=== PATIENT | female | born 1970 | race Caucasian/White ===

== ENCOUNTER 2024-07-14 11:51 | Inpatient (IN) | payer MEDICARE, OTHER ==
[~2024-07-14] VITALS: Ht 162.6 cm; Wt 59.0 kg
[2024-07-14 12:56] LABS: BASOPHILS # (AUTO) 0.1 K/uL (0.0-0.2); BASOPHILS % (AUTO) 1.1 % (0.0-2.0); EOSINOPHILS # (AUTO) 0.1 K/uL (0.0-0.7); EOSINOPHILS % (AUTO) 1.3 % (0.0-6.0); HEMATOCRIT 40 % (33-45); HEMOGLOBIN 13.2 g/dL (11.5-14.8); LYMPHOCYTES # (AUTO) 1.5 K/uL (0.8-4.8); LYMPHOCYTES % (AUTO) 20.9 % (20.0-44.0); MEAN CORPUSCULAR HEMOGLOBIN 26 PG (26.0-33.0); MEAN CORPUSCULAR HGB CONC 33 g/dl (31.0-36.0); MEAN CORPUSCULAR VOLUME 80 fL (82-100); MONOCYTES # (AUTO) 0.5 K/uL (0.1-1.30); MONOCYTES % (AUTO) 6.7 % (2.0-12.0); NEUTROPHILS # (AUTO) 5.1 K/uL (1.8-8.9); PLATELET COUNT (AUTO) 304 K/uL (150-450); RED BLOOD CELL COUNT(AUTO) 5.07 MIL/uL (4.0-5.2); RED CELL DISTRIBUTION WIDTH 14.3 % (11.5-15.0); WHITE BLOOD COUNT (AUTO) 7.3 K/uL (4.3-11.0)
[2024-07-14 13:51] LABS: ALANINE AMINOTRANSFERASE 25 U/L (12-78); ALBUMIN 3.6 g/dL (3.4-5.0); ALCOHOL, BLOOD < 3 mg/dL (0-10); ALKALINE PHOSPHATASE 76 U/L (46-116); ASPARTATE AMINOTRANSFERASE 18 U/L (15-37); BILIRUBIN,DIRECT 0.1 mg/dL (0.0-0.2); BILIRUBIN,TOTAL 0.3 mg/dL (0.2-1.0); CALCIUM, SERUM 9.3 mg/dL (8.5-10.1); CARBON DIOXIDE 29 mmol/L (21-32); CHLORIDE 100 mmol/L (98-107); CREATININE 0.8 mg/dL (0.6-1.3); GLUCOSE 115 mg/dL (74-106); SODIUM SERUM 137 mmol/L (136-145); TOTAL PROTEIN, SERUM 7.5 g/dL (6.4-8.2); UREA NITROGEN, BLOOD 17 mg/dL (7-18)
[2024-07-14] MEDS ORDERED: DIVALPROEX SODIUM 500 MG TABLET.DR PO ONE (13:56)
[2024-07-14] MEDS: DIVALPROEX SODIUM 500 MG TABLET.DR PO ONE (13:57)
[2024-07-14 14:08] LABS: APPEARANCE,URINE CLEAR (CLEAR); BILIRUBIN,URINE NEGATIVE (NEGATIVE); BLOOD, URINE NEGATIVE Ery/uL (NEGATIVE); COLOR,URINE YELLOW (YELLOW); KETONES,URINE TRACE mg/dL (NEGATIVE); LEUKOCYTE ESTERASE ,URINE NEGATIVE (NEGATIVE); NITRITE, URINE NEGATIVE (NEGATIVE); PROTEIN,URINE NEGATIVE (NEGATIVE); UGLUCOSE NEGATIVE (NEGATIVE); UROBILINOGEN,URINE 0.2 EU/dL (0.2)
[2024-07-14 14:08] LABS: ACETAMINOPHEN <10 ug/ml (10-30); SALICYLATE 0.8 mg/dL (2.8-20.0)
[2024-07-14 14:29] LABS: ADD URINE CULTURE NO; BACTERIA,URINE Few /HPF (None Seen); RBC,URINE 0-2 /HPF (0-2)
[2024-07-14 14:30] LABS: SQUAMOUS EPITHELIAL CELL,UR 0-2 /HPF (None Seen)
[2024-07-14 15:08] LABS: AMPHETAMINE, URINE NEGATIVE (NEGATIVE); BARBITURATE, URINE NEGATIVE (NEGATIVE); BENZODIAZEPINE, URINE NEGATIVE (NEGATIVE); CANNABINOID, URINE NEGATIVE (NEGATIVE); COCCAINE, URINE NEGATIVE (NEGATIVE); OPIATE, URINE NEGATIVE (NEGATIVE); PHENCYCLIDINE SCREEN,URINE NEGATIVE (NEGATIVE)
[2024-07-14] MEDS: ONDANSETRON 4 MG TAB.RAPDIS SL ONE (20:25)
[2024-07-14] MEDS ORDERED: LIDOCAINE VISCOUS 2% UD 15 ML UDC ONE (20:31)
[2024-07-14] MEDS ORDERED: MAG HYDROX/AL HYDROX/SIMETH 30 ML UDC ONE (20:31)
[2024-07-14] MEDS ORDERED: ONDANSETRON 4 MG TAB.RAPDIS ONE (20:31)
[2024-07-14] MEDS: LIDOCAINE VISCOUS 2% UD 15 ML UDC MM ONE (20:36)
[2024-07-14] MEDS: MAG HYDROX/AL HYDROX/SIMETH 30 ML UDC PO ONE (20:37)
[2024-07-15] MEDS ORDERED: LIDOCAINE 5% (PATCH) 1 EA PATCH TP ONE (05:27)
[2024-07-15] MEDS ORDERED: KETOROLAC TROMETHAMINE 15 MG/ML VIAL ONE (05:27)
[2024-07-15] MEDS ORDERED: ACETAMINOPHEN ES 500 MG TABLET ONE (05:27)
[2024-07-15 06:00] VITALS: TEMP 98.4
[2024-07-15] MEDS ORDERED: AMLO-212 PO (07:55)
[2024-07-15] MEDS ORDERED: DIVA-76 PO (07:55)
[2024-07-15] MEDS ORDERED: DOCU250C14 PO (07:55)
[2024-07-15] MEDS ORDERED: METF-440 PO (07:55)
[2024-07-15] MEDS ORDERED: RISP3TAB61 PO (07:55)
[2024-07-15] MEDS ORDERED: MAGNESIUM HYDROXIDE 30 ML UDC PO PRN (08:30)
[2024-07-15] MEDS ORDERED: ACETAMINOPHEN 325 MG TABLET PO PRN (08:30)
[2024-07-15] MEDS ORDERED: MAG HYDROX/AL HYDROX/SIMETH 30 ML UDC PO PRN (08:30)
[2024-07-15] MEDS: ALBUTEROL FS 2.5 MG/3 ML VIAL.NEB NEB SCH (08:48)
[2024-07-15] MEDS: IPRATROPIUM NEB FS 0.5 MG/2.5 ML AMPUL.NEB NEB ONE (08:48)
[2024-07-15 08:50] VITALS: O2SAT 98
[2024-07-15 09:00] VITALS: O2SAT 99
[2024-07-15] MEDS: DOCUSATE SODIUM 250 MG CAPSULE PO SCH (09:00)
[2024-07-15] MEDS: BLOOD SUGAR DIAGNOSTIC 1 EACH STRIP IN ONE (09:29)
[2024-07-15] MEDS: METFORMIN 500 MG TABLET PO SCH (11:00)
[2024-07-15] MEDS: DIVALPROEX SODIUM 250 MG TABLET.DR PO SCH ×2 (11:00→13:00)
[2024-07-15 11:19] VITALS: BP 150/110
[2024-07-15] MEDS: AMLODIPINE BESYLATE 5 MG TABLET PO SCH (11:19)
[2024-07-15 11:20] VITALS: O2SAT 97
[2024-07-15 11:30] VITALS: O2SAT 98; O2SAT 99
[2024-07-15] MEDS: BENZTROPINE MESYLATE (1 MG) 1 MG TABLET PO SCH (13:00)
[2024-07-15] MEDS ORDERED: risperiDONE 1 MG TABLET PO SCH (13:00)
[2024-07-16] MEDS ORDERED: CLOZ100T32 PO (07:47)
[2024-07-16] MEDS ORDERED: TRAZ-257 PO (07:47)
== END 2024-07-15 14:50 | disposition short-term general hospital (02) | DRG 885 ==
LOC: ER 11:55 → GPS 07-15 05:34
PROVIDERS: ADMIT Psychiatry & Neurology Psychosomatic Medicine; ATTEND Nurse Practitioner Family
DX: F20.9 Schizophrenia, unspecified (principal); E11.9 Type 2 diabetes mellitus without complications; I10 Essential (primary) hypertension; R56.9 Unspecified convulsions; Z20.822 Contact with and (suspected) exposure to COVID-19; F39 Unspecified mood [affective] disorder; R62.7 Adult failure to thrive; Z73.6 Limitation of activities due to disability; Z68.22 Body mass index [BMI] 22.0-22.9, adult; J45.909 Unspecified asthma, uncomplicated; F25.0 Schizoaffective disorder, bipolar type; Z79.84 Long term (current) use of oral hypoglycemic drugs
CPT/HCPCS: 36415; 70450-TC; 71045-TC; 80048-TC; 80076-TC; 80164-TC; 81001; 82962-TC; 85025-TC; 87081-TC; 92526; 92611-TC; G0480; J1885; Q0162

== ENCOUNTER 2024-07-15 14:00 | Inpatient (IN) | payer MEDICARE, OTHER ==
[~2024-07-15] VITALS: Ht 162.6 cm; Wt 67.6 kg
[~2024-07-15 14:00] MED LIST: AMLO-212 PO; DIVA-76 PO; DOCU250C14 PO; METF-440 PO; RISP3TAB61 PO
[2024-07-15] MEDS ORDERED: Z GUARD REMEDY 4 OZ OINT TP PRN (14:30)
[2024-07-15] MEDS ORDERED: ONDANSETRON HCL/PF 4 MG/2 ML VIAL IVP PRN (14:30)
[2024-07-15] MEDS ORDERED: ALBUTEROL FS 2.5 MG/3 ML VIAL.NEB NEB PRN (14:30)
[2024-07-15 15:58] VITALS: BP 120/100; TEMP 98.4; O2SAT 99
[2024-07-15 16:07] LABS: BASOPHILS # (AUTO) 0.1 K/uL (0.0-0.2); BASOPHILS % (AUTO) 0.8 % (0.0-2.0); EOSINOPHILS % (AUTO) 0.1 % (0.0-6.0); HEMATOCRIT 39 % (33-45); HEMOGLOBIN 12.7 g/dL (11.5-14.8); LYMPHOCYTES % (AUTO) 11.3 % (20.0-44.0); MEAN CORPUSCULAR HEMOGLOBIN 26 PG (26.0-33.0); MEAN CORPUSCULAR HGB CONC 33 g/dl (31.0-36.0); MEAN CORPUSCULAR VOLUME 80 fL (82-100); MONOCYTES # (AUTO) 0.6 K/uL (0.1-1.30); MONOCYTES % (AUTO) 6.3 % (2.0-12.0); NEUTROPHILS # (AUTO) 7.5 K/uL (1.8-8.9); NEUTROPHILS % (AUTO) 81.5 % (43.0-81.0); PLATELET COUNT (AUTO) 322 K/uL (150-450); RED BLOOD CELL COUNT(AUTO) 4.87 MIL/uL (4.0-5.2); RED CELL DISTRIBUTION WIDTH 14.5 % (11.5-15.0); WHITE BLOOD COUNT (AUTO) 9.2 K/uL (4.3-11.0)
[2024-07-15] MEDS: IV NS 0.9% 1,000 ML IV PRN (16:11)
[2024-07-15 16:22] LABS: CALCIUM, SERUM 9.1 mg/dL (8.5-10.1); CREATININE 0.8 mg/dL (0.6-1.3); MAGNESIUM 2.3 mg/dL (1.8-2.4); PHOSPHORUS 4.2 mg/dL (2.5-4.9); POTASSIUM 3.8 mmol/L (3.5-5.1)
[2024-07-15] MEDS: ENOXAPARIN SODIUM 40 MG/0.4 ML DISP.SYRIN SQ SCH (17:43)
[2024-07-15 20:30] VITALS: BP 125/94; TEMP 98.1; O2SAT 96
[2024-07-15] MEDS ORDERED: DEXTROSE 50%-WATER 50 ML DISP.SYRIN IV PRN (22:00)
[2024-07-15] MEDS: IV D5/ 0.9% NACL 1,000 ML IV PRN (22:07)
[2024-07-15] MEDS: BLOOD SUGAR DIAGNOSTIC 1 EACH STRIP IN SCH (22:39)
[2024-07-15] MEDS: INSULIN REGULAR, HUMAN 100 UNIT/ML 3 ML VIAL SQ PRN (22:39)
[2024-07-15 22:50] VITALS: BP 125/94; TEMP 98.1
[2024-07-16 06:45] LABS: BASOPHILS # (AUTO) 0.1 K/uL (0.0-0.2); BASOPHILS % (AUTO) 1.3 % (0.0-2.0); EOSINOPHILS % (AUTO) 0.3 % (0.0-6.0); HEMATOCRIT 39 % (33-45); HEMOGLOBIN 12.5 g/dL (11.5-14.8); LYMPHOCYTES % (AUTO) 11.6 % (20.0-44.0); MEAN CORPUSCULAR HEMOGLOBIN 26 PG (26.0-33.0); MEAN CORPUSCULAR HGB CONC 32 g/dl (31.0-36.0); MEAN CORPUSCULAR VOLUME 81 fL (82-100); MONOCYTES # (AUTO) 0.8 K/uL (0.1-1.30); MONOCYTES % (AUTO) 8.6 % (2.0-12.0); NEUTROPHILS % (AUTO) 78.2 % (43.0-81.0); PLATELET COUNT (AUTO) 299 K/uL (150-450); RED BLOOD CELL COUNT(AUTO) 4.81 MIL/uL (4.0-5.2); RED CELL DISTRIBUTION WIDTH 14.3 % (11.5-15.0); WHITE BLOOD COUNT (AUTO) 8.9 K/uL (4.3-11.0)
[2024-07-16 07:09] LABS: CREATININE 0.7 mg/dL (0.6-1.3); MAGNESIUM 2.3 mg/dL (1.8-2.4); PHOSPHORUS 3.8 mg/dL (2.5-4.9); POTASSIUM 3.9 mmol/L (3.5-5.1)
[2024-07-16] MEDS ORDERED: TRAZ-257 PO (07:47)
[2024-07-16] MEDS ORDERED: CLOZ100T32 PO (07:47)
[2024-07-16 08:00] VITALS: BP 138/63; TEMP 98.1; O2SAT 94
[2024-07-16] MEDS: GUAIFENESIN LA 600 MG TABLET.SA PO SCH (10:30)
[2024-07-16] MEDS: PANTOPRAZOLE 40 MG VIAL IV SCH (11:26)
[2024-07-16] MEDS: IV D5W 1,000 ML IV PRN (14:32)
[2024-07-16 16:00] VITALS: BP 128/67; TEMP 97.5; O2SAT 96
[2024-07-16] MEDS: DIVALPROEX SODIUM 250 MG TABLET.DR PO SCH (17:00)
[2024-07-16] MEDS ORDERED: TRAZODONE 50 MG TABLET PO PRN (17:00)
[2024-07-16 18:31] LABS: APPEARANCE,URINE CLEAR (CLEAR); BILIRUBIN,URINE NEGATIVE (NEGATIVE); BLOOD, URINE NEGATIVE Ery/uL (NEGATIVE); COLOR,URINE YELLOW (YELLOW); KETONES,URINE 1+ mg/dL (NEGATIVE); LEUKOCYTE ESTERASE ,URINE NEGATIVE (NEGATIVE); NITRITE, URINE NEGATIVE (NEGATIVE); PH,URINE 6.5 (5.0-8.0); PROTEIN,URINE 1+ mg/dl (NEGATIVE); UGLUCOSE NEGATIVE (NEGATIVE)
[2024-07-16] MEDS ORDERED: LORAZEPAM INJ 2 MG/ML VIAL IM PRN (19:30)
[2024-07-16 20:00] VITALS: BP 147/89; TEMP 98.2; O2SAT 97
[2024-07-16] MEDS: LORAZEPAM INJ 2 MG/ML VIAL IM PRN (20:59)
[2024-07-16 21:00] LABS: ADD URINE CULTURE NO; BACTERIA,URINE Few /HPF (None Seen); RBC,URINE 0-2 /HPF (0-2); SQUAMOUS EPITHELIAL CELL,UR Few /HPF (None Seen); WBC,URINE 0-2 /HPF (0-3)
[2024-07-16] MEDS ORDERED: CLOZAPINE 100 MG TABLET PO SCH (22:00)
[2024-07-17 08:00] VITALS: BP_SYST 125; BP_SYST 135; BP_DIAS 70; TEMP 98.8; O2SAT 98
[2024-07-17] MEDS: DOCUSATE SODIUM 250 MG CAPSULE PO SCH (08:50)
[2024-07-17 10:02] LABS: CALCIUM, SERUM 9.1 mg/dL (8.5-10.1); CREATININE 0.7 mg/dL (0.6-1.3); MAGNESIUM 2.2 mg/dL (1.8-2.4); PHOSPHORUS 3.4 mg/dL (2.5-4.9); POTASSIUM 3.7 mmol/L (3.5-5.1)
[2024-07-17 10:08] LABS: BASOPHILS # (AUTO) 0.1 K/uL (0.0-0.2); BASOPHILS % (AUTO) 1.2 % (0.0-2.0); EOSINOPHILS # (AUTO) 0.1 K/uL (0.0-0.7); EOSINOPHILS % (AUTO) 1.1 % (0.0-6.0); HEMATOCRIT 42 % (33-45); HEMOGLOBIN 13.2 g/dL (11.5-14.8); LYMPHOCYTES # (AUTO) 0.8 K/uL (0.8-4.8); LYMPHOCYTES % (AUTO) 12.6 % (20.0-44.0); MEAN CORPUSCULAR HEMOGLOBIN 26 PG (26.0-33.0); MEAN CORPUSCULAR HGB CONC 32 g/dl (31.0-36.0); MEAN CORPUSCULAR VOLUME 82 fL (82-100); MONOCYTES # (AUTO) 0.8 K/uL (0.1-1.30); MONOCYTES % (AUTO) 13.3 % (2.0-12.0); NEUTROPHILS # (AUTO) 4.5 K/uL (1.8-8.9); NEUTROPHILS % (AUTO) 71.8 % (43.0-81.0); PLATELET COUNT (AUTO) 280 K/uL (150-450); RED BLOOD CELL COUNT(AUTO) 5.11 MIL/uL (4.0-5.2); RED CELL DISTRIBUTION WIDTH 14.3 % (11.5-15.0); WHITE BLOOD COUNT (AUTO) 6.2 K/uL (4.3-11.0)
[2024-07-17 11:37] LABS: THYROID STIMULATING HORMONE 1.57 uIU/mL (0.358-3.74)
[2024-07-17 14:53] LABS: THYROID STIMULATING HORMONE 1.72 uIU/mL (0.358-3.74)
[2024-07-17 15:42] LABS: APPEARANCE,URINE CLEAR (CLEAR); BILIRUBIN,URINE NEGATIVE (NEGATIVE); BLOOD, URINE NEGATIVE Ery/uL (NEGATIVE); COLOR,URINE YELLOW (YELLOW); KETONES,URINE 1+ mg/dL (NEGATIVE); LEUKOCYTE ESTERASE ,URINE NEGATIVE (NEGATIVE); NITRITE, URINE POSITIVE (NEGATIVE); PROTEIN,URINE 1+ mg/dl (NEGATIVE); UGLUCOSE NEGATIVE (NEGATIVE)
[2024-07-17 16:00] VITALS: BP 123/89; TEMP 97.7; O2SAT 94
[2024-07-17 19:13] LABS: ADD URINE CULTURE YES; BACTERIA,URINE Many /HPF (None Seen)
[2024-07-17 19:14] LABS: RBC,URINE 0-2 /HPF (0-2); SQUAMOUS EPITHELIAL CELL,UR Few /HPF (None Seen)
[2024-07-17 20:00] VITALS: BP 136/77; TEMP 98.1; O2SAT 97
[2024-07-18 08:39] VITALS: BP 140/80; TEMP 97.9; O2SAT 96
[2024-07-18] MEDS: PANTOPRAZOLE 40 MG TABLET.DR PO SCH (08:56)
[2024-07-18 11:08] LABS: FOLIC ACID > 20.0 ng/mL (>3.0)
[2024-07-18] MEDS: CEFTRIAXONE 1 G in IV D5W 50 ML IV SCH (11:45)
[2024-07-18] MEDS: ASPIRIN EC 81 MG TABLET.DR PO SCH (12:57)
[2024-07-18] MEDS ORDERED: IV NS 0.9% 250 ML IV ONE (17:14)
[2024-07-18] MEDS ORDERED: IOHEXOL-350 100 ML VIAL IV ONE (17:14)
[2024-07-18 20:00] VITALS: BP 133/83; TEMP 98.4; O2SAT 95
[2024-07-18] MEDS: ATORVASTATIN 40 MG TABLET PO SCH (21:03)
[2024-07-19 07:39] LABS: BASOPHILS # (AUTO) 0.1 K/uL (0.0-0.2); BASOPHILS % (AUTO) 1.4 % (0.0-2.0); EOSINOPHILS # (AUTO) 0.1 K/uL (0.0-0.7); HEMATOCRIT 40 % (33-45); HEMOGLOBIN 13.2 g/dL (11.5-14.8); LYMPHOCYTES # (AUTO) 1.1 K/uL (0.8-4.8); LYMPHOCYTES % (AUTO) 18.6 % (20.0-44.0); MEAN CORPUSCULAR HEMOGLOBIN 26 PG (26.0-33.0); MEAN CORPUSCULAR HGB CONC 33 g/dl (31.0-36.0); MEAN CORPUSCULAR VOLUME 80 fL (82-100); MONOCYTES # (AUTO) 1.1 K/uL (0.1-1.30); MONOCYTES % (AUTO) 18.8 % (2.0-12.0); NEUTROPHILS # (AUTO) 3.4 K/uL (1.8-8.9); NEUTROPHILS % (AUTO) 60.2 % (43.0-81.0); PLATELET COUNT (AUTO) 262 K/uL (150-450); RED CELL DISTRIBUTION WIDTH 14.5 % (11.5-15.0); WHITE BLOOD COUNT (AUTO) 5.6 K/uL (4.3-11.0)
[2024-07-19 08:30] VITALS: BP 123/63; TEMP 99.3; O2SAT 95
[2024-07-19 08:42] LABS: CALCIUM, SERUM 8.8 mg/dL (8.5-10.1); CREATININE 0.7 mg/dL (0.6-1.3); MAGNESIUM 2.1 mg/dL (1.8-2.4); PHOSPHORUS 3.7 mg/dL (2.5-4.9); POTASSIUM 3.3 mmol/L (3.5-5.1)
[2024-07-19 10:29] LABS: CHOLESTEROL 130 mg/dL (<200); HDL CHOLESTEROL 47 mg/dL (40-60); LDL 68 mg/dL (0-99); TRIGLYCERIDES 85 mg/dL (30-150)
[2024-07-19 10:57] LABS: ANISOCYTOSIS 1+; EOSINOPHILS % (MANUAL) 1 % (0-4); LYMPHOCYTES % (MANUAL) 19 % (16-48); MONOCYTES % (MANUAL) 19 % (0-11.0); NEUTROPHILS % (MANUAL) 61 (42-76); PLATELET ESTIMATE ADEQUATE
[2024-07-19] MEDS: POTASSIUM CHLORIDE 20 MEQ TAB.PRT.SR PO SCH (11:23)
[2024-07-19 16:00] VITALS: BP 139/69; TEMP 98.9; O2SAT 98
[2024-07-19 20:00] VITALS: BP 128/82; TEMP 99; O2SAT 97
[2024-07-19 23:23] VITALS: BP 128/82; TEMP 99; O2SAT 97
[2024-07-20] MEDS: LORAZEPAM INJ 2 MG/ML VIAL IM PRN (00:12)
[2024-07-20] MEDS: ACETAMINOPHEN 325 MG TABLET PO PRN (02:28)
[2024-07-20 06:28] LABS: BASOPHILS # (AUTO) 0.1 K/uL (0.0-0.2); BASOPHILS % (AUTO) 1.3 % (0.0-2.0); EOSINOPHILS % (AUTO) 0.3 % (0.0-6.0); HEMATOCRIT 41 % (33-45); HEMOGLOBIN 13.4 g/dL (11.5-14.8); LYMPHOCYTES # (AUTO) 0.9 K/uL (0.8-4.8); LYMPHOCYTES % (AUTO) 14.1 % (20.0-44.0); MEAN CORPUSCULAR HEMOGLOBIN 26 PG (26.0-33.0); MEAN CORPUSCULAR HGB CONC 33 g/dl (31.0-36.0); MEAN CORPUSCULAR VOLUME 81 fL (82-100); MONOCYTES # (AUTO) 1.1 K/uL (0.1-1.30); MONOCYTES % (AUTO) 16.6 % (2.0-12.0); NEUTROPHILS # (AUTO) 4.3 K/uL (1.8-8.9); NEUTROPHILS % (AUTO) 67.7 % (43.0-81.0); PLATELET COUNT (AUTO) 273 K/uL (150-450); RED BLOOD CELL COUNT(AUTO) 5.09 MIL/uL (4.0-5.2); RED CELL DISTRIBUTION WIDTH 14.3 % (11.5-15.0); WHITE BLOOD COUNT (AUTO) 6.3 K/uL (4.3-11.0)
[2024-07-20 06:55] LABS: CALCIUM, SERUM 8.8 mg/dL (8.5-10.1); CREATININE 0.7 mg/dL (0.6-1.3); MAGNESIUM 2.3 mg/dL (1.8-2.4); PHOSPHORUS 3.7 mg/dL (2.5-4.9); POTASSIUM 3.5 mmol/L (3.5-5.1)
[2024-07-20 07:00] VITALS: BP 142/74; TEMP 97.3; O2SAT 96
[2024-07-20 07:55] LABS: ANISOCYTOSIS 1+; LYMPHOCYTES % (MANUAL) 13 % (16-48); MONOCYTES % (MANUAL) 13 % (0-11.0); NEUTROPHILS % (MANUAL) 74 (42-76); PLATELET ESTIMATE ADEQUATE
[2024-07-20] MEDS: LORAZEPAM 1 MG TABLET PO ONE (12:54)
[2024-07-20 16:00] VITALS: BP 139/119; TEMP 97.9; O2SAT 97
[2024-07-20 20:00] VITALS: BP 142/94; TEMP 97.5; O2SAT 92
[2024-07-21 06:43] LABS: BASOPHILS # (AUTO) 0.1 K/uL (0.0-0.2); BASOPHILS % (AUTO) 0.8 % (0.0-2.0); EOSINOPHILS % (AUTO) 0.5 % (0.0-6.0); HEMATOCRIT 41 % (33-45); HEMOGLOBIN 13.1 g/dL (11.5-14.8); LYMPHOCYTES % (AUTO) 10.6 % (20.0-44.0); MEAN CORPUSCULAR HEMOGLOBIN 26 PG (26.0-33.0); MEAN CORPUSCULAR HGB CONC 32 g/dl (31.0-36.0); MEAN CORPUSCULAR VOLUME 81 fL (82-100); MONOCYTES % (AUTO) 10.3 % (2.0-12.0); NEUTROPHILS # (AUTO) 7.3 K/uL (1.8-8.9); NEUTROPHILS % (AUTO) 77.8 % (43.0-81.0); PLATELET COUNT (AUTO) 262 K/uL (150-450); RED BLOOD CELL COUNT(AUTO) 5.05 MIL/uL (4.0-5.2); RED CELL DISTRIBUTION WIDTH 14.7 % (11.5-15.0); WHITE BLOOD COUNT (AUTO) 9.3 K/uL (4.3-11.0)
[2024-07-21 07:12] LABS: CREATININE 0.8 mg/dL (0.6-1.3); MAGNESIUM 2.3 mg/dL (1.8-2.4); PHOSPHORUS 3.5 mg/dL (2.5-4.9); POTASSIUM 3.8 mmol/L (3.5-5.1)
[2024-07-21 08:00] VITALS: BP 134/75; TEMP 97.6; O2SAT 96
[2024-07-21] MEDS ORDERED: CIPR-263 PO (11:02)
[2024-07-21] MEDS ORDERED: Aspirin Ec PO (11:02)
[2024-07-21] MEDS ORDERED: PANT40TA49 PO (11:02)
[2024-07-21] MEDS ORDERED: ATOR40TA PO (11:02)
[2024-07-21] MEDS ORDERED: ACET325T53 PO (11:02)
[2024-07-21 16:00] VITALS: BP 139/73; TEMP 98; O2SAT 96
[2024-07-21 20:00] VITALS: BP 135/70; TEMP 98.2; O2SAT 95
[2024-07-22 06:48] LABS: BASOPHILS # (AUTO) 0.1 K/uL (0.0-0.2); BASOPHILS % (AUTO) 1.1 % (0.0-2.0); EOSINOPHILS # (AUTO) 0.1 K/uL (0.0-0.7); EOSINOPHILS % (AUTO) 0.9 % (0.0-6.0); HEMATOCRIT 42 % (33-45); HEMOGLOBIN 13.2 g/dL (11.5-14.8); LYMPHOCYTES # (AUTO) 1.3 K/uL (0.8-4.8); LYMPHOCYTES % (AUTO) 19.5 % (20.0-44.0); MEAN CORPUSCULAR HEMOGLOBIN 26 PG (26.0-33.0); MEAN CORPUSCULAR HGB CONC 32 g/dl (31.0-36.0); MEAN CORPUSCULAR VOLUME 82 fL (82-100); MONOCYTES # (AUTO) 0.8 K/uL (0.1-1.30); MONOCYTES % (AUTO) 11.6 % (2.0-12.0); NEUTROPHILS # (AUTO) 4.5 K/uL (1.8-8.9); NEUTROPHILS % (AUTO) 66.9 % (43.0-81.0); PLATELET COUNT (AUTO) 253 K/uL (150-450); RED BLOOD CELL COUNT(AUTO) 5.13 MIL/uL (4.0-5.2); RED CELL DISTRIBUTION WIDTH 14.3 % (11.5-15.0); WHITE BLOOD COUNT (AUTO) 6.8 K/uL (4.3-11.0)
[2024-07-22 07:40] LABS: CALCIUM, SERUM 8.6 mg/dL (8.5-10.1); CREATININE 0.8 mg/dL (0.6-1.3); POTASSIUM 3.9 mmol/L (3.5-5.1)
[2024-07-22 08:00] VITALS: BP 159/83; TEMP 97.5; O2SAT 96
[2024-07-22 09:07] LABS: METHYLMALONIC ACID 109 nmol/L (0-378)
[2024-07-22 10:08] LABS: VITAMIN B1 THIAMINE,WB 105.3 nmol/L (66.5-200.0)
[2024-07-22] MEDS ORDERED: CEFT1VIA15 IV (10:58)
[2024-07-22 16:00] VITALS: BP 134/74; TEMP 98.8; O2SAT 96
== END 2024-07-22 18:49 | DRG 690 ==
LOC: MED 14:00
PROVIDERS: ADMIT Nurse Practitioner Family; ATTEND Nurse Practitioner Family
DX: N39.0 Urinary tract infection, site not specified (principal); D68.59 Other primary thrombophilia; R62.7 Adult failure to thrive; F39 Unspecified mood [affective] disorder; E11.9 Type 2 diabetes mellitus without complications; R56.9 Unspecified convulsions; I10 Essential (primary) hypertension; F20.9 Schizophrenia, unspecified; Z68.25 Body mass index [BMI] 25.0-25.9, adult
CPT/HCPCS: 36415; 70496-TC; 70498-TC; 70551-TC; 71045-TC; 74230-TC; 80048-TC; 80061-TC; 81001; 82140-TC; 82607-TC; 82962-TC; 83735-TC; 83921; 84100-TC; 84425; 84439-TC; 84443-TC; 85025-TC; 87086-TC; 92526; 92611-TC; 97110-TC; 97112-TC; 97116-TC; 97530-TC; 97535-TC; A4223; G0378; J0696; J1650; J1815; J2060; J2470; J7030; J7050; J7060; J7070; Q9967